=== PATIENT | female | born 1960 | race Caucasian/White ===

== ENCOUNTER 2019-01-04 03:53 | Emergency (ER) | payer OTHER ==
--- NOTE | 2019-01-04 04:10 | EDM.PDOC ---
ED HPI GENERAL MEDICAL PROBLEM - General Chief Complaint: Cardiovascular Problem Stated Complaint: BLOOD PRESSURE Time Seen by Provider: 01/04/19 04:10 - History of Present Illness INITIAL COMMENTS - FREE TEXT/NARRATIVE: 58-year-old female presents emergency room with neck pain and hypertension. Patient was awoken about an hour prior to arrival neck pain worse on the left side mild chest pressure which she noticed was her blood pressure was elevated and her pulse was quite quick. She presents to the emergency room. She's got strong family history of atherosclerotic cardiovascular disease her son was bypassed at age 40 her little brother just had an PA. The patient does not smoke use illicit drugs she's borderline diabetic she thinks she is hyperlipidemic and was recently started on antihypertensive therapy she was also started on nonsteroidals for an inflammatory breast condition. Chest Pain Score (Numeric/FACES): 6 - Related Data Allergies Allergy/AdvReac Type Severity Reaction Status Date / Time No Known Allergies Allergy Verified 01/04/19 04:02 Home Meds: Home Meds Ibuprofen 800 mg PO Q6H 01/04/19 [History] Lisinopril 5 mg PO DAILY 01/04/19 [History] traMADol [Ultram] 50 mg PO BEDTIME 01/04/19 [History] ED ROS GENERAL - Review of Systems Review Of Systems: See Below Constitutional: Reports: Night Sweats HEENT: Reports: No Symptoms Respiratory: Reports: No Symptoms Cardiovascular: Reports: Other (Neck pain hypertension palpitations) Endocrine: Reports: No Symptoms GI/Abdominal: Reports: No Symptoms. Denies: Constipation, Diarrhea, Nausea, Vomiting : Reports: No Symptoms Musculoskeletal: Reports: No Symptoms Skin: Reports: No Symptoms Neurological: Reports: No Symptoms ED EXAM, GENERAL - Physical Exam Exam: See Below Exam Limited By: No Limitations General Appearance: Alert, No Apparent Distress Head: Atraumatic, Normocephalic Neck: Normal Inspection, Supple, Non-Tender, Full Range of Motion Respiratory/Chest: No Respiratory Distress, Lungs Clear, Normal Breath Sounds Cardiovascular: No Edema, Tachycardia, Irregularly Irregular GI/Abdominal: Normal Bowel Sounds, Soft, Non-Tender, Other (Obesity) Neurological: Alert, Oriented, Normal Cognition Course - Vital Signs Last Recorded V/S: Last Vital Signs Temp 35.9 C 01/04/19 04:04 Pulse 74 01/04/19 04:51 Resp 15 01/04/19 04:04 BP 151/104 H 01/04/19 04:51 Pulse Ox 95 01/04/19 04:04 - Orders/Labs/Meds Orders: Active Orders 24 hr Category Date Time Status EKG Documentation Completion [RC] STAT Care 01/04/19 04:20 Active Chest 1V Frontal [CR] Stat Exams 01/04/19 04:20 Taken Heparin Sodium/D5W [Heparin 25,000 Units in D5W 500 ML] Med 01/04/19 04:45 Active 25,000 units in 500 ml IV CONTINUOUS Sodium Chloride 0.9% [Normal Saline] 1,000 ml Med 01/04/19 04:30 Active IV ASDIRECTED Medication Orders Sodium Chloride (Normal Saline) 1,000 mls @ 25 mls/hr IV ASDIRECTED MANJULA Stop: 01/08/19 04:31 Last Admin: 01/04/19 04:54 Dose: 25 mls/hr Heparin Sodium/Dextrose (Heparin 25,000 Units In D5w 500 Ml) 25,000 units in 500 mls @ 20 mls/hr IV CONTINUOUS MANJULA Last Admin: 01/04/19 04:52 Dose: 1,000 units/hr, 20 mls/hr Labs: Laboratory Tests 01/04/19 01/04/19 01/04/19 Range/Units 04:30 04:30 04:30 WBC 8.43 (3.98-10.04) K/mm3 RBC 5.01 (3.98-5.22) M/mm3 Hgb 15.6 (11.2-15.7) gm/L Hct 45.7 H (34.1-44.9) % MCV 91.2 (79.4-94.8) fl MCH 31.1 (25.6-32.2) pg MCHC 34.1 (32.2-35.5) g/dl RDW Std Deviation 40.0 (36.4-46.3) fL Plt Count 285 (182-369) K/mm3 MPV 10.2 (9.4-12.3) fl Neutrophils % (Manual) 45 (40-60) % Band Neutrophils % 1 (0-10) % Lymphocytes % (Manual) 42 H (20-40) % Atypical Lymphs % 0 % Monocytes % (Manual) 9 (2-10) % Eosinophils % (Manual) 2 (0.7-5.8) % Basophils % (Manual) 1 (0.1-1.2) Platelet Estimate Adequate Plt Morphology Comment Normal RBC Morph Comment Normal PT 10.5 (9.5-12.1) SECONDS INR 0.96 APTT (24-31) SECONDS Sodium 139 (136-145) mEq/L Potassium 3.4 L (3.5-5.1) mEq/L Chloride 102 (98-107) mEq/L Carbon Dioxide 22 (21-32) mEq/L Anion Gap 18.4 H (5-15) BUN 39 H (7-18) mg/dL Creatinine 1.0 (0.55-1.02) mg/dL Est Cr Clr Drug Dosing 47.32 mL/min Estimated GFR (MDRD) 57 (>60) mL/min BUN/Creatinine Ratio 39.0 H (14-18) Glucose 183 H (74-106) mg/dL Calcium 10.3 H (8.5-10.1) mg/dL Total Bilirubin 0.4 (0.2-1.0) mg/dL AST 19 (15-37) U/L ALT 35 (14-59) U/L Alkaline Phosphatase 60 (46-116) U/L Troponin I 0.172 H* (0.00-0.056) ng/mL Total Protein 8.7 H (6.4-8.2) g/dl Albumin 4.2 (3.4-5.0) g/dl Globulin 4.5 gm/dL Albumin/Globulin Ratio 0.9 L (1-2) 01/04/19 Range/Units 04:30 WBC (3.98-10.04) K/mm3 RBC (3.98-5.22) M/mm3 Hgb (11.2-15.7) gm/L Hct (34.1-44.9) % MCV (79.4-94.8) fl MCH (25.6-32.2) pg MCHC (32.2-35.5) g/dl RDW Std Deviation (36.4-46.3) fL Plt Count (182-369) K/mm3 MPV (9.4-12.3) fl Neutrophils % (Manual) (40-60) % Band Neutrophils % (0-10) % Lymphocytes % (Manual) (20-40) % Atypical Lymphs % % Monocytes % (Manual) (2-10) % Eosinophils % (Manual) (0.7-5.8) % Basophils % (Manual) (0.1-1.2) Platelet Estimate Plt Morphology Comment RBC Morph Comment PT (9.5-12.1) SECONDS INR APTT 23 L (24-31) SECONDS Sodium (136-145) mEq/L Potassium (3.5-5.1) mEq/L Chloride (98-107) mEq/L Carbon Dioxide (21-32) mEq/L Anion Gap (5-15) BUN (7-18) mg/dL Creatinine (0.55-1.02) mg/dL Est Cr Clr Drug Dosing mL/min Estimated GFR (MDRD) (>60) mL/min BUN/Creatinine Ratio (14-18) Glucose (74-106) mg/dL Calcium (8.5-10.1) mg/dL Total Bilirubin (0.2-1.0) mg/dL AST (15-37) U/L ALT (14-59) U/L Alkaline Phosphatase (46-116) U/L Troponin I (0.00-0.056) ng/mL Total Protein (6.4-8.2) g/dl Albumin (3.4-5.0) g/dl Globulin gm/dL Albumin/Globulin Ratio (1-2) Meds: Medications Generic Name Dose Route Start Last Admin Trade Name Freq PRN Reason Stop Dose Admin Sodium Chloride 1,000 mls @ 25 mls/hr 01/04/19 04:30 01/04/19 04:54 Normal Saline IV 01/08/19 04:31 25 mls/hr ASDIRECTED MANJULA Administration Heparin Sodium/Dextrose 25,000 units in 500 mls @ 20 mls/hr 01/04/19 04:45 04:52 Heparin 25,000 Units In D5w 500 Ml IV 1,000 units/hr CONTINUOUS MANJULA 20 mls/hr Administration 1,000 UNITS/HR Discontinued Medications Generic Name Dose Route Start Last Admin Trade Name Freq PRN Reason Stop Dose Admin Aspirin 324 mg 01/04/19 04:29 01/04/19 04:51 Aspirin PO 01/04/19 04:30 324 mg ONETIME ONE Administration Heparin Sodium (Porcine) 4,000 units 01/04/19 04:37 01/04/19 04:52 Heparin Sodium IVPUSH 01/04/19 04:38 4,000 units ONETIME ONE Administration Metoprolol Tartrate 2.5 mg 01/04/19 04:29 01/04/19 04:51 Lopressor IVPUSH 01/04/19 04:30 2.5 mg ONETIME ONE Administration Tenecteplase 50 mg 01/04/19 04:38 01/04/19 04:50 Tnkase IV 01/04/19 04:39 50 mg ONETIME ONE Administration Protocol - Re-Assessments/Exams Free Text/Narrative Re-Assessment/Exam: 01/04/19 04:[address] Salmeron, on-call sourcing specialist at [facility] in [place] who agrees with thrombolytic therapy her recommendation is to gently use of beta rafa to try to lower her blood pressure and rate if possible or if the patient has pain use nitroglycerin but don't use nitroglycerin in the beta rafa concurrently. She accepts the patient in transfer. Agrees on thrombolytics and heparin. Patient will be flown to [facility] in [place] directly to the emergency room for reevaluation. 01/04/19 05:09 She received heparin thrombolytics TNKase before the TNKase was given we discussed the risk and benefits in detail risks including bleeding benefits including coronary artery reperfusion. Her chest x-ray shows no contraindication to thrombolytics at that point. 01/04/19 05:46 A few minutes after the patient left I discussed the situation with Dr. Zaldivar at the [facility] emergency room in [place] reviewed labs clinical presentation and a synopsis of the workup and treatment. Departure - Departure Time of Disposition: 05:03 Disposition: DC/Tfer to Acute Hospital 02 Reason for Transfer *Q: Other Condition: Serious Clinical Impression: STEMI (ST elevation myocardial infarction), Atrial fibrillation with RVR Referrals: Lesley Maurice NP [Primary Care Provider] - Forms: ED Department Discharge - My Orders Last 24 Hours: My Active Orders 01/04/19 04:20 EKG Documentation Completion [RC] STAT Chest 1V Frontal [CR] Stat 01/04/19 04:30 Sodium Chloride 0.9% [Normal Saline] 1,000 ml IV ASDIRECTED 01/04/19 04:45 Heparin Sodium/D5W [Heparin 25,000 Units in D5W 500 ML] 25,000 units in 500 ml IV CONTINUOUS - Assessment/Plan Last 24 Hours: My Active Orders 01/04/19 04:20 EKG Documentation Completion [RC] STAT Chest 1V Frontal [CR] Stat 01/04/19 04:30 Sodium Chloride 0.9% [Normal Saline] 1,000 ml IV ASDIRECTED 01/04/19 04:45 Heparin Sodium/D5W [Heparin 25,000 Units in D5W 500 ML] 25,000 units in 500 ml IV CONTINUOUS
[2019-01-04] MEDS ORDERED: Metoprolol Tartrate 5 MG/5 ML SDV IVPUSH ONE (04:29)
[2019-01-04] MEDS ORDERED: Aspirin 81 MG Tab.Chew PO ONE (04:29)
[2019-01-04] MEDS ORDERED: Sodium Chloride 0.9% 1,000 ML IV SCH (04:30)
[2019-01-04] MEDS ORDERED: Heparin Sodium 5,000 Units/ML Vial IVPUSH ONE (04:37)
[2019-01-04] MEDS ORDERED: Tenecteplase 50 MG Kit IV ONE (04:38)
[2019-01-04] MEDS ORDERED: Heparin Sodium/D5W 25,000 UNITS/500 ML BAG IV SCH (04:45)
--- NOTE | 2019-01-04 10:53 | CR ---
Chest: Portable view of the chest was obtained. Comparison: No prior chest x-ray. Heart size at the upper limits of normal. Upper mediastinum is within normal limits. Lungs are clear. Bony structures show mild degenerative spurring and disc space narrowing within the spine with minimal scoliosis. Impression: 1. Incidental findings. Nothing acute is appreciated. Diagnostic code #2
== END 2019-01-04 05:40 ==
LOC: JD.ED 03:53
DX: I21.3 ST elevation (STEMI) myocardial infarction of unspecified site (principal); I48.91 Unspecified atrial fibrillation; Z79.899 Other long term (current) drug therapy
CPT/HCPCS: 36415; 71045; 80053; 84484; 85007; 85027; 85610; 85730; 93005; 96365; 96375; 99285; A9270; J1644; J3101; J3490; J7040; 93010; 99284

== ENCOUNTER 2020-10-04 13:10 | Emergency (ER) | payer OTHER ==
[2020-10-04] MEDS ORDERED: Sodium Chloride 0.9% 10 ML Syringe FLUSH PRN (14:06)
--- NOTE | 2020-10-04 15:02 | EDM.PDOC ---
ED HPI GENERAL MEDICAL PROBLEM - General Chief Complaint: Chest Pain Stated Complaint: CHEST PAIN Time Seen by Provider: 10/04/20 14:05 Source of Information: Reports: Patient, RN Notes Reviewed - History of Present Illness INITIAL COMMENTS - FREE TEXT/NARRATIVE: 60 yr old female with chest pain that started yesterday morning, continues today. Mild ache that does not radiate. No dyspnea, nausea, vomiting or back discomfort. Hx 2 stents placed close to 2 yrs ago. On xarelto in addition to her other meds. 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: Other (see below) Other Treatments PRODUCTION MAINTENANCE MECHANIC: baby aspirin daily Left Chest Pain Score (Numeric/FACES): 3 - Related Data Allergies Allergy/AdvReac Type Severity Reaction Status Date / Time No Known Allergies Allergy Verified 01/25/19 12:14 Home Meds: Home Meds Ascorbic Acid [Vitamin C] 250 mg PO DAILY 01/14/19 [History] Aspirin 81 mg PO DAILY 01/14/19 [History] Cholecalciferol (Vitamin D3) [Vitamin D] 1 tab PO DAILY 01/14/19 [History] Metoprolol Tartrate 12.5 mg PO BID 01/14/19 [History] Nitroglycerin 1 tab SL ASDIRECTED 01/14/19 [History] Potassium Chloride 20 meq PO DAILY 01/14/19 [History] Rosuvastatin Calcium [Crestor] 40 mg PO DAILY 01/14/19 [History] Apixaban [Eliquis] 5 mg PO BID 10/04/20 [History] Cyanocobalamin (Vitamin B12) [Vitamin B12] 100 mcg PO DAILY 10/04/20 [History] Dofetilide [Tikosyn] 125 mcg PO BID 10/04/20 [History] Losartan [Cozaar] 50 mg PO DAILY 10/04/20 [History] Magnesium Chloride 64 mg PO BID 10/04/20 [History] Maceo-3/DHA/Epa/Fish Oil [Maceo-3 Fish Oil 1,000 MG Sfgl] 1,000 mg PO DAILY 10/04/20 [History] Past Medical History Other HEENT History: Wears glasses Cardiovascular History: Reports: Afib, High Cholesterol, Hypertension, [place], Stents Other Cardiovascular History: Recently started on lisinopril MANAGEMENT NURSE RN History: Reports: Musculoskeletal History: Reports: Osteoarthritis - Past Surgical History Female Surgical History: Reports: Section Social & Family History - Tobacco Use Tobacco Use Status *Q: Never Tobacco User - Caffeine Use Caffeine Use: Reports: Coffee - Recreational Drug Use Recreational Drug Use: No ED ROS GENERAL - Review of Systems Review Of Systems: See Below Constitutional: Denies: Fever, Chills, Diaphoresis HEENT: Reports: No Symptoms Respiratory: Denies: Shortness of Breath, Pleuritic Chest Pain, Cough Cardiovascular: Reports: Chest Pain GI/Abdominal: Denies: Abdominal Pain, Nausea, Vomiting Musculoskeletal: Denies: Neck Pain, Shoulder Pain, Arm Pain, Back Pain Skin: Reports: No Symptoms Neurological: Reports: No Symptoms ED EXAM, GENERAL - Physical Exam Exam: See Below General Appearance: Alert, No Apparent Distress Head: Atraumatic. No: Facial Swelling Neck: Supple Respiratory/Chest: No Respiratory Distress, Lungs Clear, Normal Breath Sounds, Chest Non-Tender. No: Rhonchi, Wheezing Cardiovascular: Regular Rate, Rhythm GI/Abdominal: Soft, Non-Tender. No: Guarding Extremities: Normal Inspection. No: Pedal Edema, Leg Pain, Increased Warmth, Redness Neurological: Alert, Oriented, No Motor/Sensory Deficits Skin Exam: Warm, Dry, Normal Color #1 Interpretation EKG Date: 10/04/20 Rhythm: NSR Cornell: Normal P-Wave: Present QRS: Other (q waves inf. leads) ST-T: Other (t wave inversions V2-V6) Course - Vital Signs Last Recorded V/S: Last Vital Signs Temp 99.5 F 10/04/20 13:35 Pulse 78 10/04/20 13:35 Resp 20 10/04/20 13:35 BP 179/76 H 10/04/20 13:35 Pulse Ox 95 10/04/20 13:35 - Orders/Labs/Meds Orders: Active Orders 24 hr Category Date Time Status EKG 12 Lead [EKG Documentation Completion] [RC] STAT Care 10/04/20 14:06 Active Peripheral IV Care [RC] . DIRECTED Care 10/04/20 14:07 Active Chest 1V Frontal [CR] Stat Exams 10/04/20 14:06 Taken Sodium Chloride 0.9% [Saline Flush] Med 10/04/20 14:06 Active 10 ml FLUSH ASDIRECTED PRN Peripheral IV Insertion Adult [OM.PC] Stat Oth 10/04/20 14:07 Ordered Medication Orders Sodium Chloride (Saline Flush) 10 ml FLUSH ASDIRECTED PRN PRN Reason: Keep Vein Open Labs: Laboratory Tests 10/04/20 10/04/20 Range/Units 14:43 14:43 WBC 6.86 (3.98-10.04) K/mm3 RBC 4.44 (3.98-5.22) M/mm3 Hgb 14.1 D (11.2-15.7) gm/dl Hct 42.6 (34.1-44.9) % MCV 95.9 H D (79.4-94.8) fl MCH 31.8 (25.6-32.2) pg MCHC 33.1 (32.2-35.5) g/dl RDW Std Deviation 42.3 (36.4-46.3) fL Plt Count 222 (182-369) K/mm3 MPV 10.4 (9.4-12.3) fl Neut % (Auto) 66.9 (34.0-71.1) % Lymph % (Auto) 23.9 (19.3-51.7) % Stone % (Auto) 7.4 (4.7-12.5) % Eos % (Auto) 1.2 (0.7-5.8) Baso % (Auto) 0.3 (0.1-1.2) % Neut # (Auto) 4.59 (1.56-6.13) K/mm3 Lymph # (Auto) 1.64 (1.18-3.74) K/mm3 Stone # (Auto) 0.51 H (0.24-0.36) K/mm3 Eos # (Auto) 0.08 (0.04-0.36) K/mm3 Baso # (Auto) 0.02 (0.01-0.08) K/mm3 Sodium 138 (136-145) mEq/L Potassium 5.3 H D (3.5-5.1) mEq/L Chloride 102 (98-107) mEq/L Carbon Dioxide 28 (21-32) mEq/L Anion Gap 13.3 (5-15) BUN 16 (7-18) mg/dL Creatinine 0.8 (0.55-1.02) mg/dL Est Cr Clr Drug Dosing 57.67 mL/min Estimated GFR (MDRD) > 60 (>60) mL/min BUN/Creatinine Ratio 20.0 H (14-18) Glucose 124 H (80-115) mg/dL Calcium 9.9 (8.5-10.1) mg/dL Total Bilirubin 0.5 (0.2-1.0) mg/dL AST 32 (15-37) U/L ALT 36 (14-59) U/L Alkaline Phosphatase 36 L (46-116) U/L Troponin I < 0.017 (0.00-0.056) ng/mL Total Protein 8.2 (6.4-8.2) g/dl Albumin 4.0 (3.4-5.0) g/dl Globulin 4.2 gm/dL Albumin/Globulin Ratio 1.0 (1-2) Meds: Medications Generic Name Dose Route Start Last Admin Trade Name Freq PRN Reason Stop Dose Admin Sodium Chloride 10 ml 10/04/20 14:06 Saline Flush FLUSH ASDIRECTED PRN Keep Vein Open - Re-Assessments/Exams Free Text/Narrative Re-Assessment/Exam: 10/04/20 16:25 EKG does show q waves inf. leads, t wave inversion V2-6. No st elevation. Sinus rythm, no rythm disturbance. CXR, trop, other labs nl. Departure - Departure Time of Disposition: 16:20 Disposition: Home, Self-Care 01 Condition: Fair Clinical Impression: Atypical chest pain Referrals: Homa Julio MD [Primary Care Provider] - Forms: ED Department Discharge Additional Instructions: Your heart and lungs have checked out well today. Continue currents meds. Follow up with Cardiology in 1 week as planned. Return to ED as needed if symptoms worsening in any way. Sepsis Event Note (ED) - Evaluation Sepsis Screening Result: No Definite Risk - Focused Exam Vital Signs: Vital Signs Temp Pulse Resp BP Pulse Ox 10/04/20 13:35 99.5 F 78 20 179/76 H 95 - My Orders Last 24 Hours: My Active Orders 10/04/20 14:06 EKG 12 Lead [EKG Documentation Completion] [RC] STAT Chest 1V Frontal [CR] Stat Sodium Chloride 0.9% [Saline Flush] 10 ml FLUSH ASDIRECTED PRN 10/04/20 14:07 Peripheral IV Care [RC] . DIRECTED Peripheral IV Insertion Adult [OM.PC] Stat - Assessment/Plan Last 24 Hours: My Active Orders 10/04/20 14:06 EKG 12 Lead [EKG Documentation Completion] [RC] STAT Chest 1V Frontal [CR] Stat Sodium Chloride 0.9% [Saline Flush] 10 ml FLUSH ASDIRECTED PRN 10/04/20 14:07 Peripheral IV Care [RC] . DIRECTED Peripheral IV Insertion Adult [OM.PC] Stat
[2020-10-04] MEDS ORDERED: Lidocaine 1% 10 ML MDV INJECT ONE (15:12)
--- NOTE | 2020-10-05 09:47 | CR ---
PROCEDURE INFORMATION: Exam: XR Chest, 1 View Exam date and time: 10/04/2020 2:14 PM Age: 60 years old Clinical indication: Chest pain; Type not specified TECHNIQUE: Imaging protocol: XR of the chest Views: 1 view. COMPARISON: CR Chest 1V Frontal 01/04/2019 4:19 AM FINDINGS: Lungs: Unremarkable. No consolidation. Pleural space: Unremarkable. No pleural effusion. No pneumothorax. Heart/Mediastinum: Unremarkable. No cardiomegaly. Bones/joints: Degenerative changes in the spine. IMPRESSION: No acute finding. Thank you for allowing us to participate in the care of your patient. Dictated and Authenticated by: Adán Garber MD 10/04/2020 3:41 PM Central Time ([place] & [place]) [place]
== END 2020-10-04 17:26 | disposition home or self-care (01) ==
LOC: JD.ED 13:10
DX: R07.89 Other chest pain (principal); I10 Essential (primary) hypertension; E78.00 Pure hypercholesterolemia, unspecified; I48.91 Unspecified atrial fibrillation; I25.2 Old myocardial infarction; M19.90 Unspecified osteoarthritis, unspecified site; Z95.5 Presence of coronary angioplasty implant and graft; Z79.82 Long term (current) use of aspirin; Z79.899 Other long term (current) drug therapy; Z79.01 Long term (current) use of anticoagulants
CPT/HCPCS: 36415; 71045; 71045-26; 80053; 84484; 85025; 93005; 93010; 99284; 99285-25

== ENCOUNTER 2022-03-24 08:20 | Emergency (ER) | payer OTHER | END 2022-03-24 13:20 | disposition home or self-care (01) | LOC: JD.ED 08:20 | DX: I48.91 Unspecified atrial fibrillation (principal); E78.00 Pure hypercholesterolemia, unspecified; I10 Essential (primary) hypertension; I25.2 Old myocardial infarction; Z95.5 Presence of coronary angioplasty implant and graft; Z79.01 Long term (current) use of anticoagulants; Z79.899 Other long term (current) drug therapy | CPT/HCPCS: 36415; 80053; 83735; 84484; 85025; 93005; 99285-25 ==

== ENCOUNTER 2022-12-05 00:06 | Emergency (ER) | payer OTHER ==
[2022-12-05] MEDS ORDERED: Levofloxacin 250 MG Tab PO ONE (00:44)
== END 2022-12-05 00:55 | disposition home or self-care (01) ==
LOC: JD.ED 00:06
DX: N39.0 Urinary tract infection, site not specified (principal); I48.91 Unspecified atrial fibrillation; E78.00 Pure hypercholesterolemia, unspecified; I10 Essential (primary) hypertension; I25.2 Old myocardial infarction; Z95.0 Presence of cardiac pacemaker; Z86.16 Personal history of COVID-19; Z79.82 Long term (current) use of aspirin; Z79.01 Long term (current) use of anticoagulants; Z79.899 Other long term (current) drug therapy
CPT/HCPCS: 81001; 87086; 87088; 87186; 99283; A9270